=== PATIENT | male | born 1945 | race Caucasian/White ===

== ENCOUNTER 2021-02-04 08:59 | Emergency (ER) | payer OTHER ==
[2021-02-04 10:45] LABS: INR 1.03 (0.9-1.2); PROTHROMBIN TIME 12.8 SECONDS (11.4-13.6); PTT 31.7 SECONDS (22.2-34.7)
[2021-02-04 10:57] LABS: BASOPHIL 0.4 % (0-2); EOSINOPHIL 0.7 % (0-7); HCT 39.8 % (42.0-52.0); HGB 12.8 g/dl (13.2-18.0); MCH 30.8 pg (25.0-31.0); MCHC 32.2 g/dL (32.0-36.0); MCV 95.7 fL (78.0-100.0); MONOCYTE 8.2 % (0-12); MPV 11.9 fL (6.0-9.5); NEUTROPHIL 79.4 % (41-80); NRBC 0; PLT 204 K/uL (150-400); RBC 4.16 M/uL (4.70-6.00); RDW 13.2 % (11.5-14.0); WBC 10.8 K/uL (4.0-10.5)
[2021-02-04 11:10] LABS: ALBUMIN 3.7 g/dL (3.4-5.0); BILIRUBIN - TOTAL 0.4 mg/dL (0.2-1.0); BUN/CREAT RATIO (CALC) 19.4 RATIO; CREATININE 2.32 mg/dL (0.67-1.17); GLOBULIN (CALCULATION) 3.2 g/dL; MAGNESIUM 2.3 mg/dL (1.8-2.4); POTASSIUM 3.8 mmol/L (3.5-5.1); TOTAL PROTEIN 6.9 g/dL (6.4-8.2)
== END 2021-02-04 15:21 | disposition other institution (70) ==
LOC: FER 08:59
PROVIDERS: Emergency Medicine
DX: C67.9 Malignant neoplasm of bladder, unspecified (principal); C79.9 Secondary malignant neoplasm of unspecified site; N32.0 Bladder-neck obstruction; N13.30 Unspecified hydronephrosis; Z86.73 Personal history of transient ischemic attack (TIA), and cerebral infarction without residual deficits; Z79.02 Long term (current) use of antithrombotics/antiplatelets
CPT/HCPCS: 36415; 80053; 83735; 84145; 85025; 85610; 85730; J1170; J2405; J7030

== ENCOUNTER 2021-04-30 15:08 | Day surgery (SDCO) | payer OTHER ==
[~2021-04-30] VITALS: Ht 175.3 cm; Wt 84.5 kg
[2021-04-30 17:34] LABS: INR 1.11 (0.9-1.2); PROTHROMBIN TIME 13.7 SECONDS (11.8-13.4)
[2021-04-30 17:35] LABS: PTT 32.6 SECONDS (24.4-34.7)
[2021-04-30 17:37] LABS: BASOPHIL 0.6 % (0-2); EOSINOPHIL 3.4 % (0-7); LYMPHOCYTE 23.3 % (15-48); MCH 28.4 pg (25.0-31.0); MCV 94.7 fL (78.0-100.0); MONOCYTE 7.5 % (0-12); MPV 12.3 fL (6.0-9.5); NEUTROPHIL 64.8 % (41-80); NRBC 0; PLT 207 K/uL (150-400); RDW 16.8 % (11.5-14.0); WBC 8.3 K/uL (4.0-10.5)
[2021-04-30 17:39] LABS: ALBUMIN 2.5 g/dL (3.4-5.0); BILIRUBIN - TOTAL 0.1 mg/dL (0.2-1.0); BUN/CREAT RATIO (CALC) 17.7 RATIO; CREATININE 0.96 mg/dL (0.67-1.17); GLOBULIN (CALCULATION) 3.5 g/dL; POTASSIUM 4.2 mmol/L (3.5-5.1)
[2021-04-30 17:47] LABS: HGB 5.4 g/dl (13.2-18.0)
[2021-04-30] MEDS ORDERED: HYDROCODON-ACE1 EAC2 PO (19:30)
[2021-04-30] MEDS ORDERED: CYMBALTA 30MG C30 MG PO (19:30)
[2021-04-30] MEDS ORDERED: STOOL SOFTENER (19:31)
[2021-04-30] MEDS ORDERED: CRESTOR20 MG PO (19:31)
[2021-05-01 07:03] LABS: BASOPHIL 0.7 % (0-2); HCT 26.2 % (42.0-52.0); LYMPHOCYTE 26.7 % (15-48); MCH 28.4 pg (25.0-31.0); MCHC 30.9 g/dL (32.0-36.0); MCV 91.9 fL (78.0-100.0); MONOCYTE 9.6 % (0-12); MPV 11.7 fL (6.0-9.5); NEUTROPHIL 56.9 % (41-80); NRBC 0; PLT 182 K/uL (150-400); RBC 2.85 M/uL (4.70-6.00); RDW 15.9 % (11.5-14.0); WBC 6.8 K/uL (4.0-10.5)
[2021-05-01 07:19] LABS: HGB 8.1 g/dl (13.2-18.0)
[2021-05-02 07:57] LABS: BASOPHIL 0.8 % (0-2); HGB 10.5 g/dl (13.2-18.0); LYMPHOCYTE 18.9 % (15-48); MCH 29.3 pg (25.0-31.0); MCHC 32.8 g/dL (32.0-36.0); MCV 89.4 fL (78.0-100.0); MONOCYTE 7.8 % (0-12); NEUTROPHIL 66.1 % (41-80); NRBC 0; PLT 186 K/uL (150-400); RBC 3.58 M/uL (4.70-6.00); RDW 16.4 % (11.5-14.0); WBC 7.2 K/uL (4.0-10.5)
[2021-05-02 08:19] LABS: ALBUMIN 2.5 g/dL (3.4-5.0); BILIRUBIN - TOTAL 0.3 mg/dL (0.2-1.0); BUN/CREAT RATIO (CALC) 14.6 RATIO; CREATININE 0.96 mg/dL (0.67-1.17); GLOBULIN (CALCULATION) 3.5 g/dL; POTASSIUM 3.8 mmol/L (3.5-5.1)
== END 2021-05-02 11:05 | disposition home or self-care (01) ==
LOC: FER 15:08 → FMS 17:17
PROVIDERS: Emergency Medicine; Nurse Practitioner; ADMIT Internal Medicine
DX: N99.820 Postprocedural hemorrhage of a genitourinary system organ or structure following a genitourinary system procedure (principal); D62 Acute posthemorrhagic anemia; C67.9 Malignant neoplasm of bladder, unspecified; Z79.01 Long term (current) use of anticoagulants; M79.89 Other specified soft tissue disorders; R60.0 Localized edema; F32.9 Major depressive disorder, single episode, unspecified; E78.5 Hyperlipidemia, unspecified; F17.210 Nicotine dependence, cigarettes, uncomplicated; Z85.51 Personal history of malignant neoplasm of bladder; Z20.822 Contact with and (suspected) exposure to COVID-19; I07.1 Rheumatic tricuspid insufficiency
CPT/HCPCS: 36415; 36430; 71045; 80053; 83880; 85025; 85610; 85730; 86850; 86900; 86901; 86922; G0378; J1642; J1940; J2916; J7050; P9016; U0002

== ENCOUNTER 2021-06-26 09:43 | Emergency (ER) | payer OTHER ==
[~2021-06-26 09:43] MED LIST: CRESTOR20 MG PO; CYMBALTA 30MG C30 MG PO; HYDROCODON-ACE1 EAC2 PO; STOOL SOFTENER
== END 2021-06-26 10:40 | disposition home or self-care (01) ==
LOC: FER 09:43
DX: T83.038A Leakage of other urinary catheter, initial encounter (principal); F17.210 Nicotine dependence, cigarettes, uncomplicated; Z86.73 Personal history of transient ischemic attack (TIA), and cerebral infarction without residual deficits; Z88.8 Allergy status to other drugs, medicaments and biological substances
CPT/HCPCS: 99283